=== PATIENT | female | born 1990 | race Caucasian/White ===

== ENCOUNTER → 2017-04-03 | Outpatient (REF) | LOC: WSOH 10:06 | DX: Z02.1 Encounter for pre-employment examination (principal) ==

== ENCOUNTER → 2017-04-14 | Outpatient (REF) | LOC: WSOH 09:45 | DX: Z02.89 Encounter for other administrative examinations (principal) ==

== ENCOUNTER 2019-05-27 21:25 | Emergency (ER) | payer BC ==
[~2019-05-27] VITALS: Ht 170.2 cm; Wt 134.1 kg
[2019-05-27 21:34] VITALS: BP 140/91; TEMP 97.6
[2019-05-27] MEDS ORDERED: KLONOPIN 1MG1 MG PO (21:39)
[2019-05-27] MEDS ORDERED: MINIPRESS 5M5 MG/CAP PO (21:39)
[2019-05-27] MEDS ORDERED: AMBIEN 10MG10 MG PO (21:40)
[2019-05-27] MEDS ORDERED: JANUVIA 100MG100 MG PO (21:41)
[2019-05-27] MEDS ORDERED: LIPITOR 40MG TA40 MG PO (21:41)
[2019-05-27] MEDS ORDERED: EFFEXOR-XR150 MG PO (21:41)
[2019-05-27] MEDS ORDERED: RISPERDAL 1M1 MG/TAB PO (21:42)
[2019-05-27] MEDS ORDERED: WELLBUTRIN XL300 M1 PO (21:42)
[2019-05-27] MEDS ORDERED: VYVANSE70 MG PO (21:42)
[2019-05-27] MEDS ORDERED: PRILOSEC 20MG20 MG PO (21:43)
[2019-05-27] MEDS ORDERED: IRON 27 MG PO (21:43)
[2019-05-27] MEDS ORDERED: ATARAX 25MG25 MG/TAB PO (21:43)
[2019-05-27] MEDS ORDERED: VITAMIN D 400400 IU PO (21:43)
[2019-05-27] MEDS ORDERED: CLARITIN 1010 MG/TAB PO (21:44)
[2019-05-27 21:59] LABS: COLLECTION METHOD CLEAN CATCH
[2019-05-27 22:08] LABS: BASO # 0.1 (0.0-0.2); BASO % 0.7 % (0.0-2.0); EOS # 0.7 (0.0-0.7); EOS % 7.3 % (0-4.0); GRAN # 5.1 (1.4-6.5); GRAN % 51.5 % (42.2-75.2); HEMATOCRIT 40.8 % (37.0-47.0); HEMOGLOBIN 13.7 g/dl (12.5-16.0); LYMPH # 3.3 (1.2-3.4); LYMPH % 33.1 % (20.0-51.0); MEAN CELL VOLUME 85 fl (80.0-100.0); MEAN CORPUSCULAR HEMOGLOBIN 29 pg (27.0-31.0); MEAN CORPUSCULAR HGB CONC 34 g/dl (33.0-37.0); MEAN PLATELET VOLUME 10.4 fl (7.4-10.4); MONO # 0.6 (0.1-0.6); MONO % 6.5 % (1.7-9.3); PLATELET COUNT 194 K/mm3 (130-400); RED BLOOD COUNT 4.78 M/mm3 (4.10-5.30); REDCELL DISTRIBUTION WIDTH-CV 14.1 % (11.5-14.5)
[2019-05-27 22:16] LABS: MUCOUS Present /lpf; PH 6 (5-8); SQUAMOUS EPITHELIAL 0-2 /hpf; URINE APPEARANCE Hazy; URINE BACTERIA Rare /hpf; URINE BILIRUBIN Negative (NEGATIVE); URINE BLOOD Negative (NEGATIVE); URINE COLOR Yellow; URINE GLUCOSE 3+ (NEGATIVE); URINE KETONE Negative (NEGATIVE); URINE LEUKOCYTE ESTERASE Trace (NEGATIVE); URINE NITRATE Negative (NEGATIVE); URINE PROTEIN(semi-quant) Negative (NEGATIVE); URINE UROBILINOGEN Negative (NEGATIVE)
[2019-05-27 22:28] LABS: ALBUMIN 4.4 gm/dL (3.5-5.0); BILIRUBIN,TOTAL 0.3 mg/dL (0.0-1.0); C-REACTIVE PROTEIN 1.3 mg/dL (0.0-0.9); CALCIUM 9.2 mg/dL (8.4-10.2); CREATININE, serum 0.55 (0.52-1.25); POTASSIUM 4.1 mmol/L (3.4-5.0); TOTAL PROTEIN 8.1 gm/dL (6.4-8.2)
[2019-05-28 03:25] VITALS: PULSE 80
== END 2019-05-28 03:25 | disposition home or self-care (01) ==
LOC: COL.ER 21:25
PROVIDERS: Nurse Practitioner
DX: N70.11 Chronic salpingitis (principal); E78.5 Hyperlipidemia, unspecified; E11.9 Type 2 diabetes mellitus without complications; K58.9 Irritable bowel syndrome, unspecified; F17.210 Nicotine dependence, cigarettes, uncomplicated; Z88.1 Allergy status to other antibiotic agents; Z79.84 Long term (current) use of oral hypoglycemic drugs
CPT/HCPCS: J1885; J2405; J7030; Q9967